=== PATIENT | male | born 1935 | race Caucasian/White ===

== ENCOUNTER 2016-10-03 12:57 | Inpatient (IN) | payer OTHER, MEDICARE ==
--- NOTE | 2016-10-03 13:06 | PDOC ---
General Adult HPI - General Chief Complaint: General Medical Stated Complaint: NOT FEELING WELL X 3 WEEKS Date Seen by Provider: 10/03/16 Time Seen by Provider: 13:05 - History of Present Illness Initial Comment: José Miguel is an 80-year-old male who presents to the emergency department with subacute symptoms. Patient reports he has not been feeling well for the last 3 weeks. He does describe nausea. Decreased oral intake. He is not taking much by mouth. Patient indicates he has not had significant stool output but feels that this is secondary to not providing much in his body. He does have abdominal pain. Right sided. No specific exacerbating or relieving factors. He did indicate that a surgeon is told him he needs to have his gallbladder out. When asked to describe what he feels like he says it feels "like a building is crumbling down". Patient denies any chest pain. No shortness of breath. 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 Have you received a tetanus shot in the past 10 years?: Unknown - Patient Home Medications Home Medications: Home Medications Multivitamin [Daily Vitamin] 1 tab PO DAILY #30 tab 11/05/12 [place]-3/Dha/Epa/Fish Oil [Fish Oil] 500 mg PO QD cap 04/15/14 Lancets 1 each MC QD #50 unit 05/12/15 Blood Sugar Diagnostic [Glucose Test Strip] 1 unit IN QD #50 strip 10/20/15 Nabumetone 1 unit PO 2-3XD #60 tab 04/18/16 Quinapril HCl 1 unit PO QD #90 tab 04/18/16 Metformin HCl 2 unit PO QAM #180 tab 07/25/16 - Patient Allergies Allergies/Adverse Reactions: Allergies Allergy/AdvReac Type Severity Reaction Status Date / Time No Known Drug Allergies Allergy NOT Verified 10/03/16 17:25 APPLICABLE Past Medical History - heen HEENT History: Hard of Hearing Cardiovascular History: Hypertension Respiratory History: Denies History Gastrointestinal History: Denies History Genitourinary History: Other (please comment) (Bladder and prostate cancer) Endocrine History: Type 2 Diabetes (oral) Musculoskeletal History: Denies History Neurological History: Denies History Blood Disorders: Denies History Psychiatric History: Denies History Male Reproductive History: Denies History Cancer History: Other (please comment) (Bladder and prostate cancer) Previous Surgical History: Yes Type / Date of Surgery: Bladder and prostate surgery. Ileal conduit Significant Family History: No pertinent family hx Past Medical History Reviewed: Reviewed - Changes Made ROS - Limitations ROS Limitations: No Limitations Constitution: REPORTS: Weakness Cardiovascular: DENIES: Chest Pain Respiratory: REPORTS: Denies Resp Symptoms Neurological: REPORTS: Denies Neuro Symptoms Gastrointestinal: REPORTS: Nausea, Vomitting Endocrine: REPORTS: Denies Symptoms Musculoskeletal: REPORTS: Other (Weakness) Genitourinary: REPORTS: Denies Symptoms Eyes: REPORTS: Denies Symptoms ENT: REPORTS: Denies Symptoms Skin: REPORTS: Denies Skin Symptoms Lympathic: REPORTS: Denies Lympathic Symptoms Psychiatric: POSITIVE: Denies Psych Symptoms General Adult Exam - General Appearance General Appearance: POSITIVE: Alert, Cooperative, No Acute Distress, No Evidence of Trauma - HEENT HEENT: POSITIVE: Other (Dry mucous membranes) - Pupils Pupil Size: 4 mm: Bilateral - Neck Neck: POSITIVE: Normal Inspection - Respiratory Respiratory: POSITIVE: No Respiratory Distress, Breath Sounds Normal - Cardiovascular Cardiovascular: POSITIVE: Other (Systolic murmur present) - Abdomen Additional Abdominal Details: Tenderness to palpation of the abdomen. Predominantly in the right upper and right lower quadrant. Mild voluntary guarding. No rebound. Decreased bowel sounds. Systolic bruit versus radiating systolic heart murmur noted in the mid abdomen - Back Back: POSITIVE: Normal Inspection - Skin Skin: POSITIVE: Normal Color, Warm, Dry - Extremities Extremity: Non-Tender: (LLE), (RLE) - Neurological / Psychological Neurological: POSITIVE: Affect Apporpriate General Adult Progress - Results Reviewed by me Xrays/CTs/US Reviewed by me: Yes Lab Results Reviewed: Yes Lab Results:: Laboratory Results 10/03/16 10/03/16 10/03/16 Range/Units 13:07 13:35 13:36 WBC 13.92 H (4.8-10.8) 10^3/uL RBC 5.24 (4.70-6.10) 10^6/uL Hgb 15.4 (14.0-18.0) g/dL Hct 45.7 (42.0-52.0) % MCV 87.2 (80-90) FL MCH 29.4 (27-31) PG MCHC 33.7 (33-37) g/dL RDW Std Deviation 42.2 (39-50) fL RDW Coeff of Derrick 13.4 (11.5-14.5) % Plt Count 411 H (140-350) 10*3/uL MPV 10.8 (7.4-12.2) FL Neutrophils % (Manual) 90 H (50-80) % Band Neutrophils % 4 (0-10) % Lymphocytes % (Manual) 2 L (10-50) % Monocytes % (Manual) 4 (0-12) % Eosinophils % (Manual) 0 (0-8) % Basophils % (Manual) 0 (0-1) % Metamyelocytes % 0 % Myelocytes % 0 % Promyelocytes % 0 % Blast Cells 0 (0-1) % WBC Morphology Comment Normal morphology (NORM) Plt Morphology Comment Normal morphology (NORM) RBC Morph Comment Normal morphology (NORM) VBG pH 7.32 (7.32-7.42) VBG pCO2 23 L (45-55) mmHg VBG HCO3 12 L (22-26) mmol/L VBG Base Excess -14 L (-2-2) MMOL/L Sodium 138 (135-145) meq/L Potassium 5.6 H (3.8-5.2) meq/L Chloride 108 (98-112) meq/L Carbon Dioxide 12 L (23-33) meq/L Anion Gap 18 (5-20) BUN 65 H (7-22) mg/dL Creatinine 1.5 (0.70-1.50) mg/dL Estimated GFR (>60 ml/min/1.73m(2)) BUN/Creatinine Ratio 43.33 H (6-20) Glucose 162 H (78-110) mg/dL Calculated Osmolality 308.0 H (267-292) mOsm/kg Calcium 9.5 (8.7-10.7) mg/dL Total Bilirubin 1.8 H (0.3-1.2) mg/dL AST 343 H (21-57) IU/L ALT 202 H (21-72) IU/L Alkaline Phosphatase 243 H (38-126) IU/L Troponin I 0.019 (< 0.040) ng/mL Total Protein 7.7 (6.1-8.0) g/dL Albumin 3.7 (3.5-4.8) g/dL Globulin 4.0 (2.50-4.10) g/dL Albumin/Globulin Ratio 0.90 L (1.3-2.0) mg/g Lipase 97 (23-300) IU/L Ur Collection Type Pee bag collection Urine Color Yellow Urine Clarity Slightly cloudy (CLEAR) Urine pH 6.5 (5.0-8.5) Ur Specific [place] 1.010 (1.005-1.030) Urine Protein Trace (NEG) mg/dl Urine Glucose (UA) Negative (NEG) mg/dL Urine Ketones 15 (NEG) Urine Occult Blood Negative (NEG) Urine Nitrate Negative (NEG) Urine Bilirubin Small (NEG) Urine Urobilinogen 1.0 (0.2) mg/dL Ur Leukocyte Esterase Negative (NEG) Urine RBC None (NONE) /hpf Urine WBC 20-30 (NONE) Ur Squamous Epith Cells None (NONE) Ur Renal Epithelial Cell Few (NONE) Urine Crystals None Urine Bacteria None (NONE) Urine Casts None Urine Mucus None (NONE) Urine Trichomonas None (NONE) Urine Yeast None (NONE) EKG Interpreted/Reviewed By Me:: Yes (normal sinus rhythm) - Patient's Progress MDM / ED Course: José Miguel is a 80-year-old male who presents to the emergency Department not feeling well. His vital signs are unremarkable and examination demonstrates dehydrated male with right-sided abdominal pain. Differential diagnosis includes but is not limited to biliary disease, hepatitis, cholecystitis, metastatic disease, bowel obstruction. Patient's laboratory studies do demonstrate an elevation in his LFTs along with bilirubin. This is slightly above his baseline. White blood cell count is elevated mildly as well. Patient 's urinalysis does not demonstrate any gross evidence of infection given that this is ileal conduit. CT scan of the abdomen and pelvis read demonstrates cholelithiasis without other evidence of acute cholecystitis. There are also scattered findings of lymph nodes of uncertain significance but potentially could represent malignancy. Patient's laboratory studies do also demonstrate dehydration. He was treated here with Zofran 2 still very nauseous. Given his inability to tolerate oral intake despite medications and laboratory findings to suggest dehydration will be admitted for further evaluation. - Consult Consult (If Yes, Name of Consulting MD & Time Called): Yes (hospitalist) Consulting MD will see pt:: POSITIVE: [facility] Admit Patient Care Time - Estimated PCT Patient Care Time (In Minutes): 40 Vital Signs - Recent Vital Signs Vital Signs: Vital Signs (Last 8 hours) Temp Pulse Pulse Resp BP BP Pulse Ox 10/03/16 18:04 98 F 98 22 119/55 91 10/03/16 18:03 98 F 98 22 119/55 91 10/03/16 17:12 98.1 F 72 140/63 93 10/03/16 12:57 97.8 F 96 18 140/67 93 - VS Reviewed Vital Signs Reviewed: Yes Discharge Clinical Impression: Dehydration Abdominal pain Qualifiers: Abdominal location: right lower quadrant Qualifier Code: (R10.31) Right lower quadrant pain Discharge Disposition: Admit to Observation Condition: Fair Date Decision to Admit to Inpatient: 10/03/16 Time Decision to Admit to Inpatient: 16:27
[2016-10-03] MEDS ORDERED: Sodium Chloride 0.9% 1,000 ML PRIMARY IV ONE (13:07)
[2016-10-03] MEDS ORDERED: NORMAL SALINE 10 ML SYRINGE FLUSH IVP PRN ×2 (13:07→18:02)
[2016-10-03] MEDS ORDERED: ONDANSETRON 4 MG/2 ML VIAL IVP ONE (13:23)
--- NOTE | 2016-10-03 13:39 | EKG ---
[address] [address] Measurements Intervals [place] Rate: 99 P: 52 NM: 130 QRS: 63 QRSD: 96 T: 43 QT: 343 QTc: 399 Interpretive Statements SINUS RHYTHM No previous ECG available for comparison Electronically Signed On 10-04-16 13:24:29 MDT by Ford Bryant [email or web address]
[2016-10-03 13:40] LABS: HEMATOCRIT 45.7 % (42.0-52.0); HEMOGLOBIN 15.4 g/dL (14.0-18.0); MEAN CORPUSCULAR HEMOGLOBIN 29.4 PG (27-31); MEAN CORPUSCULAR HGB CONC 33.7 g/dL (33-37); MEAN CORPUSCULAR VOLUME 87.2 FL (80-90); MEAN PLATELET VOLUME 10.8 FL (7.4-12.2); RED BLOOD COUNT 5.24 10^6/uL (4.70-6.10)
[2016-10-03 13:51] LABS: BUN/CREATININE RATIO 43.33 (6-20); CALCIUM 9.5 mg/dL (8.7-10.7); SERUM ALBUMIN 3.7 g/dL (3.5-4.8)
[2016-10-03 13:56] LABS: VENOUS PH 7.32 (7.32-7.42)
[2016-10-03 14:05] LABS: PLATELET MORPHOLOGY COMMENT NORMAL MORPHOLOGY (NORM); RBC MORPHOLOGY COMMENT NORMAL MORPHOLOGY (NORM); WBC MORPHOLOGY COMMENT NORMAL MORPHOLOGY (NORM)
[2016-10-03 14:06] LABS: BAND NEUTROPHILS % 4 % (0-10); BASOPHILS % (MANUAL) 0 % (0-1); EOSINOPHILS % (MANUAL) 0 % (0-8); LYMPHOCYTES % (MANUAL) 2 % (10-50); METAMYELOCYTES % 0 %; MONOCYTES % (MANUAL) 4 % (0-12); MYELOCYTES % 0 %; NEUTROPHILS % (MANUAL) 90 % (50-80); PROMYELOCYTES % 0 %
[2016-10-03 15:27] LABS: CLARITY,URINE SLIGHTLY CLOUDY (CLEAR); COLOR,URINE YELLOW; GLUCOSE, URINE (UA) NEGATIVE (NEG); NITRATE,URINE NEGATIVE (NEG); OCCULT BLOOD,URINE NEGATIVE (NEG); PH,URINE 6.5 (5.0-8.5); PROTEIN,URINE TRACE mg/dl (NEG); URINE SAMPLE TYPE PEE BAG COLLECTION
[2016-10-03 15:28] LABS: BILIRUBIN,URINE SMALL (NEG); RENAL EPITHELIAL CELLS,URINE FEW; WBC,URINE 20-30
--- NOTE | 2016-10-03 16:11 | DI ---
CT ABD W/CN AND PELVIS W/CN,10/03/2016 1:07 PM: Clinical History: Abdominal pain, nausea and vomiting. Previous Exam: December 17, 2008 Findings: Multiple helically acquired CT images are obtained through the abdomen and pelvis without contrast, a nd demonstrate diastases recti. There is a right-sided ileostomy. There is no free air nor free fluid. Peripheral vascular calcifications are seen. There are gallstones noted within the gallbladder. There is thinning of the renal cortices bilaterall y with several small simple bilateral renal cysts. There are multiple prominent retroperitoneal lymph nodes all of which are nonpathologic by size crite rocael. Peripheral vascular calcifications are seen. The liver contains multiple subcentimeter hypodensities which are too small to characterize. There is some mild lobulated contour of the liver which may represent some underlying hepatic cirrhos is. There is also heterogeneous is density throughout the liver. Impression: 1. Cholelithiasis. 2. Lobulated hepatic contour worrisome for early cirrhosis. 3. Multiple prominent retroperitoneal lymph nodes not seen on the prior exam. Prominence of retroperi toneal lymph nodes as well as a heterogeneous density throughout the liver could be secondary to meta static disease. Consider three-phase liver CT for further evaluation.
[2016-10-03] MEDS ORDERED: ONDANSETRON 4 MG/2 ML VIAL IVP PRN (18:02)
[2016-10-03] MEDS ORDERED: LIDOCAINE W/ SODIUM BICARB 0.5 ML SYR SUBD PRN (18:02)
--- NOTE | 2016-10-03 18:11 | PDOC ---
History and Physical - History of Present Illness Date and Time of Service: 10/03/2016 6:29 PM Chief Complaint: Decreased appetite, weakness, dizziness of 3-4 weeks duration History of Present Illness: This is an 80 years old male with medical history significant for history of hypertension, diabetes, history of bladder and prostate cancer status post cystoprostatectomy and urethrectomy with an ileal conduit 2010, who came into the hospital because of history of decreased appetite, weakness and at times dizziness as being going on for about 4 weeks. He said he is not eating much because he doesn't have appetite also not drinking well. Weak and dizzy at times. He fell he said but onto his bed on Sunday. Using a cane which is something new. He did report occasional abdominal pain in the right upper quadrant apparently this is being going on for a period of time pain varies in intensity no radiation. He has a history of cholelithiasis was supposed to follow-up with Dr. Oakes for potential surgery. Some mild nausea but no vomiting. Some shortness of breath but also has been going on for long period of time. He lost about 13 pounds. No abdominal pain now Past Medical History Medical History: 1. Hypertension. 2. Diabetes. 3. Hyperlipidemia. 4. History of bladder cancer status post surgery with ileal conduit formation. 5. History of prostate cancer was removed the time of bladder cancer surgery. 6. History of cholelithiasis Surgical History: 1. Status post cystoprostatectomy and urethrectomy with ileal conduit 2010. 2. Nasal surgery. 3. Inguinal hernia repair. 4. History of prior another cyst incision and drainage Pertinent Family History: Father had lung cancer Past Social History: Doesn't smoke, occasionally drinks, no drugs. Lives in [place] with his . Tobacco Use: Never Smoker Substance Use Type: None Medication / Allergies Home Medications: Home Medications Medication Instructions Recorded Confirmed Type Multivitamin [Daily Vitamin] 1 tab PO DAILY #30 tab 11/05/12 10/03/16 History [place]-3/Dha/Epa/Fish Oil [Fish Oil] 500 mg PO QD cap 04/15/14 10/03/16 History Lancets 1 each MC QD #50 unit 05/12/15 10/03/16 Clinic Blood Sugar Diagnostic [Glucose 1 unit IN QD #50 strip 10/20/15 10/03/16 Clinic Test Strip] Nabumetone 1 unit PO 2-3XD #60 tab 04/18/16 10/03/16 Clinic Quinapril HCl 1 unit PO QD #90 tab 04/18/16 10/03/16 Clinic Metformin HCl 2 unit PO QAM #180 tab 07/25/16 10/03/16 Clinic Allergies/Adverse Reactions: Allergies Allergy/AdvReac Type Severity Reaction Status Date / Time No Known Drug Allergies Allergy NOT Verified 10/04/16 06:35 APPLICABLE Review of Systems - Constitutional Constitutional: REPORTS: Weight Loss, Fatigue, Weakness - Integumentary Integumentary: REPORTS: Negative System Review - Eye Exam Eye Exam: REPORTS: Negative System Review - Ear/Nose Exam Ear/Nose Exam: REPORTS: Negative System Review - Mouth/Throat Mouth/Throat Exam: REPORTS: Negative System Review - Cardiovascular Cardiovascular: REPORTS: Negative System Review - Gastrointestinal Gastrointestinal / Abdominal: REPORTS: Nausea, Abdominal Pain, Poor Appetite - Genitourinary Genitourinary: REPORTS: Negative System Review - Musculoskeletal Musculoskeletal: REPORTS: Negative System Review - Neurological Neurologic: REPORTS: Dizziness Exam - Vitals Vital Signs: Vital Signs Temperature 98 F Temperature Source Temporal Artery Scan Pulse Rate [Pulse Oximeter] 98 Pulse Rate 98 Respiratory Rate 22 Blood Pressure [Right Arm] 119/55 Blood Pressure 140/63 Pulse Ox 91 Oxygen Flow Rate 2.5 Oxygen Delivery Method Nasal Cannula Height 5 ft 11 in Weight 230 lb - General General Appearance: POSITIVE: No Acute Distress, Obese - Head Head Exam: POSITIVE: Normal Inspection, Atraumatic - Eye Eye Exam: POSITIVE: Normal Appearance - ENT ENT Exam: POSITIVE: Normal Exam - Neck Neck Exam: POSITIVE: Normal Inspection, No Lymphadenopathy - Respiratory Respiratory Exam: POSITIVE: Clear to Auscultation - Bilaterally - Cardiovascular Cardiovascular Exam: POSITIVE: RRR, Systolic Murmur - GI/Abdominal GI/Abdominal Exam: POSITIVE: Normal Bowel Sounds, Non Distended, Soft Additional GI/Abdominal Exam Details: No significant tenderness in the right upper quadrant - Rectal Rectal Exam: POSITIVE: Deferred - External Exam: POSITIVE: Deferred - Extremities Extremities Exam: POSITIVE: Normal Inspection - Back Back Exam: POSITIVE: Normal Inspection, No CVA Tenderness - Neurological Neurological Exam: POSITIVE: Alert, Oriented x 3, CN II-XII Intact, Moves All Extremities Equally - Psychiatric Psychiatric Exam: POSITIVE: Normal Affect Results - Labs CBC and BMP: 10/04/16 05:24 10/04/16 05:24 - Imaging Status: Report Reviewed by Me (CT of the abdomen showed cholelithiasis, lobulated hepatic contour worrisome for early cirrhosis, multiple prominent retroperitoneal lymph nodes as well as heterogenous density throughout the liver this could be secondary to metastatic disease) Assessment and Plan - Patient Problems (1) Dehydration Current Visit: Yes Status: Acute Comment: This is secondary to poor intake will give him IV fluid repeat his labs in the morning. (2) Weight loss Current Visit: Yes Status: Acute Comment: With his decreased appetite and abnormal LFTs and abnormal CT all suspicious for malignancy, will do a CT of his liver tomorrow. Will order PSA. Will speak with surgery on the morning (3) Diabetes Current Visit: Yes Status: Acute Comment: We'll hold off on his metformin because he got contrast (4) Hypertension Current Visit: Yes Status: Acute Comment: Watch his blood pressure and hold off on his blood pressure medication for now (5) Increased anion gap metabolic acidosis Current Visit: Yes Status: Acute Comment: Probably secondary to starvation ketosis, will give fluid and repeat labs in am.
[2016-10-03] MEDS: Sodium Chloride 0.9% 1,000 ML PRIMARY IV SCH (19:38)
[2016-10-04] MEDS: oxyCODONE IR Tab 5 MG TAB PO PRN ×3 (02:54→16:25)
[2016-10-04] MEDS: Sodium Chloride 0.9% 1,000 ML PRIMARY IV SCH (03:12)
[2016-10-04 05:38] LABS: MEAN PLATELET VOLUME 11.1 FL (7.4-12.2)
[2016-10-04 05:42] LABS: HEMATOCRIT 44.4 % (42.0-52.0); HEMOGLOBIN 15.2 g/dL (14.0-18.0); MEAN CORPUSCULAR HGB CONC 34.2 g/dL (33-37); MEAN CORPUSCULAR VOLUME 87.6 FL (80-90); RED BLOOD COUNT 5.07 10^6/uL (4.70-6.10)
[2016-10-04 05:59] LABS: BUN/CREATININE RATIO 44.28 (6-20); SERUM ALBUMIN 3.3 g/dL (3.5-4.8)
[2016-10-04 06:19] LABS: BAND NEUTROPHILS % 3 % (0-10); BASOPHILS % (MANUAL) 0 % (0-1); EOSINOPHILS % (MANUAL) 0 % (0-8); LYMPHOCYTES % (MANUAL) 3 % (10-50); MONOCYTES % (MANUAL) 4 % (0-12); NEUTROPHILS % (MANUAL) 90 % (50-80); PLATELET MORPHOLOGY COMMENT NORMAL MORPHOLOGY (NORM); RBC MORPHOLOGY COMMENT NORMAL MORPHOLOGY (NORM); WBC MORPHOLOGY COMMENT NORMAL MORPHOLOGY (NORM)
[2016-10-04] MEDS ORDERED: D5-1/2NS 1,000 ML PRIMARY IV SCH (08:15)
[2016-10-04] MEDS ORDERED: ENOXAPARIN SODIUM 40 MG/0.4 ML SYRINGE SUBCUT SCH (09:00)
[2016-10-04] MEDS ORDERED: Ertapenem Inj 1 GM in Sodium Chloride 0.9% 100 ML IV SCH (11:00)
[2016-10-04] MEDS ORDERED: Piperacillin/Tazobactam Inj 3.375 GM in Sodium Chloride 0.9% 100 ML IV SCH (11:00)
[2016-10-04 12:01] VITALS: RESP 32; TEMP 98.1
--- NOTE | 2016-10-04 13:10 | DCSUMMARY ---
Hospitalization Summary Admit Date: 10/03/16 Discharge Date: 10/04/16 Hospital Course: Discharge diagnoses 1. Possible cholecystitis 2. Multiple prominent retroperitoneal lymph nodes, heterogenous density throughout the liver could be metastatic disease 3. History of bladder cancer and prostate cancer status post cystoprostatectomy and urethrectomy 2010 with ileal conduit 4. History of hypertension 5. Increased gap metabolic acidosis probably starvation ketosis 6. Elevated PT and PTT probable DIC secondary to inflammation or malignancy 7. Lobulated hepatic contour worrisome for early cirrhosis 8. Cholelithiasis 9. Hypoxia on oxygen Hospital course This is an 80 years old male with medical history significant for history of hypertension, diabetes, history of bladder cancer and prostate cancer status post cystoprostatectomy and urethrectomy with an ileal conduit 2010, who came into the hospital because of history of decreased appetite, weakness and at times dizziness has been going on for about 4 weeks. He said he has not been eating much because he doesn't have appetite also is not drinking well. He's feels weak and dizzy at times. He fell he said onto his bed on Sunday. He did report some occasional abdominal pain in the right upper quadrant apparently it is been going on for a period of time pain varies in intensity and there is no radiation elsewhere. Some mild nausea but no vomiting. Some shortness of breath is also being going on for a long period of time. He did report the that he lost about 13 pounds. There was no abdominal pain by the time I saw him. There was no significant tenderness in his abdomen initially. His LFTs were abnormal he had a CT of the abdomen which showed lobulated hepatic contour worrisome for early cirrhosis, cholelithiasis, multiple prominent retroperitoneal lymph nodes as well as heterogenous density throughout the liver could be secondary to metastatic disease. Patient was admitted to the hospital the patient presentation was not entirely clear but we thought that maybe he has an underlying cancer and that would explain his weight loss and decreased appetite and abnormal LFTs and also the hypodensity present on CT of the abdomen in additional to the prominent lymph nodes. We did take a blood culture and they are still negative. The next day he is having more prominent abdominal pain more tenderness, we did a CT of the liver tripe phase and per my discussion with the radiologist there still hypodensity present they don't show enhancement though, we did put him on antibiotics with Zosyn as the other potential reason is a cholecystitis although doesn't appear on the CT. I did speak with the surgeon who saw the patient and recommended transfer because of the abnormal PT and PTT and potentially the need for ERCP. The case was discussed with Dr. Abebe at [facility] patient was accepted for transfer. Laboratory Results 10/03/16 10/03/16 10/03/16 Range/Units 13:07 13:35 13:36 WBC 13.92 H (4.8-10.8) 10^3/uL RBC 5.24 (4.70-6.10) 10^6/uL Hgb 15.4 (14.0-18.0) g/dL Hct 45.7 (42.0-52.0) % MCV 87.2 (80-90) FL MCH 29.4 (27-31) PG MCHC 33.7 (33-37) g/dL RDW Std Deviation 42.2 (39-50) fL RDW Coeff of Derrick 13.4 (11.5-14.5) % Plt Count 411 H (140-350) 10*3/uL MPV 10.8 (7.4-12.2) FL Neutrophils % (Manual) 90 H (50-80) % Band Neutrophils % 4 (0-10) % Lymphocytes % (Manual) 2 L (10-50) % Monocytes % (Manual) 4 (0-12) % Eosinophils % (Manual) 0 (0-8) % Basophils % (Manual) 0 (0-1) % Metamyelocytes % 0 % Myelocytes % 0 % Promyelocytes % 0 % Blast Cells 0 (0-1) % WBC Morphology Comment Normal morphology (NORM) Plt Morphology Comment Normal morphology (NORM) RBC Morph Comment Normal morphology (NORM) PT (9.7-11.4) secs INR (0.00-5.90) N/A APTT (22.6-31.3) SECS VBG pH 7.32 (7.32-7.42) VBG pCO2 23 L (45-55) mmHg VBG HCO3 12 L (22-26) mmol/L VBG Base Excess -14 L (-2-2) MMOL/L Sodium 138 (135-145) meq/L Potassium 5.6 H (3.8-5.2) meq/L Chloride 108 (98-112) meq/L Carbon Dioxide 12 L (23-33) meq/L Anion Gap 18 (5-20) BUN 65 H (7-22) mg/dL Creatinine 1.5 (0.70-1.50) mg/dL Estimated GFR (>60 ml/min/1.73m(2)) BUN/Creatinine Ratio 43.33 H (6-20) Glucose 162 H (78-110) mg/dL Calculated Osmolality 308.0 H (267-292) mOsm/kg Lactic Acid (0.70-2.10) MMOL/L Calcium 9.5 (8.7-10.7) mg/dL Total Bilirubin 1.8 H (0.3-1.2) mg/dL AST 343 H (21-57) IU/L ALT 202 H (21-72) IU/L Alkaline Phosphatase 243 H (38-126) IU/L Troponin I 0.019 (< 0.040) ng/mL Total Protein 7.7 (6.1-8.0) g/dL Albumin 3.7 (3.5-4.8) g/dL Globulin 4.0 (2.50-4.10) g/dL Albumin/Globulin Ratio 0.90 L (1.3-2.0) mg/g Lipase 97 (23-300) IU/L PSA Screen (0.006-4.00) ng/ml Ur Collection Type Pee bag collection Urine Color Yellow Urine Clarity Slightly cloudy (CLEAR) Urine pH 6.5 (5.0-8.5) Ur Specific [place] 1.010 (1.005-1.030) Urine Protein Trace (NEG) mg/dl Urine Glucose (UA) Negative (NEG) mg/dL Urine Ketones 15 (NEG) Urine Occult Blood Negative (NEG) Urine Nitrate Negative (NEG) Urine Bilirubin Small (NEG) Urine Urobilinogen 1.0 (0.2) mg/dL Ur Leukocyte Esterase Negative (NEG) Urine RBC None (NONE) /hpf Urine WBC 20-30 (NONE) Ur Squamous Epith Cells None (NONE) Ur Renal Epithelial Cell Few (NONE) Urine Crystals None Urine Bacteria None (NONE) Urine Casts None Urine Mucus None (NONE) Urine Trichomonas None (NONE) Urine Yeast None (NONE) 10/04/16 10/04/16 Range/Units 05:24 09:51 WBC 13.00 H (4.8-10.8) 10^3/uL RBC 5.07 (4.70-6.10) 10^6/uL Hgb 15.2 (14.0-18.0) g/dL Hct 44.4 (42.0-52.0) % MCV 87.6 (80-90) FL MCH 30.0 (27-31) PG MCHC 34.2 (33-37) g/dL RDW Std Deviation 43.0 (39-50) fL RDW Coeff of Derrick 13.7 (11.5-14.5) % Plt Count 359 H (140-350) 10*3/uL MPV 11.1 (7.4-12.2) FL Neutrophils % (Manual) 90 H (50-80) % Band Neutrophils % 3 (0-10) % Lymphocytes % (Manual) 3 L (10-50) % Monocytes % (Manual) 4 (0-12) % Eosinophils % (Manual) 0 (0-8) % Basophils % (Manual) 0 (0-1) % Metamyelocytes % Not Reportable % Myelocytes % Not Reportable % Promyelocytes % Not Reportable % Blast Cells Not Reportable (0-1) % WBC Morphology Comment Normal morphology (NORM) Plt Morphology Comment Normal morphology (NORM) RBC Morph Comment Normal morphology (NORM) PT 41.6 H (9.7-11.4) secs INR 3.93 (0.00-5.90) N/A APTT 40.1 H (22.6-31.3) SECS VBG pH (7.32-7.42) VBG pCO2 (45-55) mmHg VBG HCO3 (22-26) mmol/L VBG Base Excess (-2-2) MMOL/L Sodium 139 (135-145) meq/L Potassium 5.7 H (3.8-5.2) meq/L Chloride 114 H (98-112) meq/L Carbon Dioxide 8 L (23-33) meq/L Anion Gap 17 (5-20) BUN 62 H (7-22) mg/dL Creatinine 1.4 (0.70-1.50) mg/dL Estimated GFR (>60 ml/min/1.73m(2)) BUN/Creatinine Ratio 44.28 H (6-20) Glucose 120 H (78-110) mg/dL Calculated Osmolality 306.0 H (267-292) mOsm/kg Lactic Acid 2.6 H (0.70-2.10) MMOL/L Calcium 9.0 (8.7-10.7) mg/dL Total Bilirubin 2.0 H (0.3-1.2) mg/dL AST 335 H (21-57) IU/L ALT 183 H (21-72) IU/L Alkaline Phosphatase 218 H (38-126) IU/L Troponin I (< 0.040) ng/mL Total Protein 7.3 (6.1-8.0) g/dL Albumin 3.3 L (3.5-4.8) g/dL Globulin 4.0 (2.50-4.10) g/dL Albumin/Globulin Ratio 0.80 L (1.3-2.0) mg/g Lipase (23-300) IU/L PSA Screen < 0.064 (0.006-4.00) ng/ml Ur Collection Type Urine Color Urine Clarity (CLEAR) Urine pH (5.0-8.5) Ur Specific [place] (1.005-1.030) Urine Protein (NEG) mg/dl Urine Glucose (UA) (NEG) mg/dL Urine Ketones (NEG) Urine Occult Blood (NEG) Urine Nitrate (NEG) Urine Bilirubin (NEG) Urine Urobilinogen (0.2) mg/dL Ur Leukocyte Esterase (NEG) Urine RBC (NONE) /hpf Urine WBC (NONE) Ur Squamous Epith Cells (NONE) Ur Renal Epithelial Cell (NONE) Urine Crystals Urine Bacteria (NONE) Urine Casts Urine Mucus (NONE) Urine Trichomonas (NONE) Urine Yeast (NONE) Follow-up per the Medical Center post discharge. Exam - Vitals Vital Signs: Vital Signs Temperature 98.1 F Temperature Source Temporal Artery Scan Pulse Rate [Pulse Oximeter] 98 Pulse Rate 102 Respiratory Rate 32 Blood Pressure [Right Arm] 121/55 Blood Pressure 140/63 Pulse Ox 92 Oxygen Flow Rate 4.5 Oxygen Delivery Method Nasal Cannula Height 5 ft 11 in Weight 246 lb 9.6 oz - General General Appearance: POSITIVE: Cooperative, Obese - Head Head Exam: POSITIVE: Normal Inspection, Atraumatic - Eye Eye Exam: POSITIVE: Normal Appearance - ENT ENT Exam: POSITIVE: Normal Exam - Neck Neck Exam: POSITIVE: Normal Inspection - Respiratory Respiratory Exam: POSITIVE: Clear to Auscultation - Bilaterally - Cardiovascular Cardiovascular Exam: POSITIVE: Systolic Murmur - GI/Abdominal GI/Abdominal Exam: POSITIVE: Normal Bowel Sounds, Non Distended, Soft Additional GI/Abdominal Exam Details: Urine bag on the left side present, right upper quadrant tenderness more prominent than yesterday. - Rectal Rectal Exam: POSITIVE: Deferred - External Exam: POSITIVE: Deferred - Extremities Extremities Exam: POSITIVE: Normal Inspection - Back Back Exam: POSITIVE: Normal Inspection Patient Problems - Patient Problem List (1) Dehydration Current Visit: Yes Status: Acute (2) Weight loss Current Visit: Yes Status: Acute (3) Diabetes Current Visit: Yes Status: Acute (4) Hypertension Current Visit: Yes Status: Acute (5) Increased anion gap metabolic acidosis Current Visit: Yes Status: Acute
--- NOTE | 2016-10-04 13:50 | DI ---
CT ABDOMEN W/WO CONTRAST,10/04/2016 9:00 AM: Clinical History: Weight loss and abnormal liver function tests. Previous Exam: October 03, 2016 Findings: Multiple helically acquired CT images are obtained through the abdomen following a [address], and demonstrate diffuse heterogeneity of the liver with variable enhancement most prominent on the de layed images with some lobulated hepatic contour. There are stable stones within the gallbladder. The pancreas is unremarkable. Adrenals and kidneys ar e normal and stable. There are right-sided simple renal cysts unchanged from the prior exam. Multiple enlarged retroperitoneal lymph nodes are again noted. Skeletal structures are unremarkable. There is a small left-sided pleural effusion and some subsegmental atelectasis. Coronary artery calci fications are seen. Impression: 1. Diffuse heterogeneity of the liver with heterogeneous enhancement most consistent with metastatic disease of the liver. 2. Enlarged retroperitoneal lymph nodes most consistent with metastatic involvement of the retroperit rodriguez nodes. 3. Cholelithiasis.
--- NOTE | 2016-10-04 15:29 | CONSULT ---
Consult Note - Consult Consult Date: 10/04/16 Reason for Consult: PreOp Consulation : General Surgery Requesting Physician: Dr. Yao Primary Care Provider: NONE NONE - History of Present Illness History of Present Illness: This is an 80-year-old gentleman who has a known history of cholelithiasis the comes in with approximate 4 week history of a being weak. He has loss of appetite. Nausea. An abdominal pain. Laboratory values are as follows: 10/03/16 10/03/16 10/03/16 13:07 13:35 13:36 WBC 13.92 H Hgb 15.4 Hct 45.7 PT INR VBG pH 7.32 VBG pCO2 23 L VBG HCO3 12 L VBG Base Excess -14 L Sodium 138 Potassium 5.6 H Chloride 108 Carbon Dioxide 12 L Anion Gap 18 BUN 65 H Creatinine 1.5 BUN/Creatinine Ratio 43.33 H Glucose 162 H Calculated Osmolality 308.0 H Total Bilirubin 1.8 H AST 343 H ALT 202 H Alkaline Phosphatase 243 H Lipase 97 Urine RBC None Urine WBC 20-30 Ur Squamous Epith Cells None Ur Renal Epithelial Cell Few Urine Crystals None Urine Bacteria None Urine Casts None 10/04/16 05:24 WBC Hgb Hct PT 41.6 H INR 3.93 VBG pH VBG pCO2 VBG HCO3 VBG Base Excess Sodium Potassium Chloride Carbon Dioxide Anion Gap BUN Creatinine BUN/Creatinine Ratio Glucose Calculated Osmolality Total Bilirubin AST ALT Alkaline Phosphatase Lipase Urine RBC Urine WBC Ur Squamous Epith Cells Ur Renal Epithelial Cell Urine Crystals Urine Bacteria Urine Casts Patient is CT scan that shows cholelithiasis. Also shows that he has liver masses consistent with metastatic disease Review of Systems - Review of Systems -: Abdominal pain Past Medical History Medical History: 1. Hypertension. 2. Diabetes. 3. Hyperlipidemia. 4. History of bladder cancer status post surgery with ileal conduit formation. 5. History of prostate cancer was removed the time of bladder cancer surgery. 6. History of cholelithiasis Surgical History: 1. Status post cystoprostatectomy and urethrectomy with ileal conduit 2010. 2. Nasal surgery. 3. Inguinal hernia repair. 4. History of prior another cyst incision and drainage Pertinent Family History: Father had lung cancer Past Social History: Doesn't smoke, occasionally drinks, no drugs. Lives in [place] with his . Tobacco Use: Never Smoker Substance Use Type: None Medication / Allergies Home Medications: Home Medications Medication Instructions Recorded Confirmed Type Multivitamin [Daily Vitamin] 1 tab PO DAILY #30 tab 11/05/12 10/03/16 History [place]-3/Dha/Epa/Fish Oil [Fish Oil] 500 mg PO QD cap 04/15/14 10/03/16 History Lancets 1 each MC QD #50 unit 05/12/15 10/03/16 Clinic Blood Sugar Diagnostic [Glucose 1 unit IN QD #50 strip 10/20/15 10/03/16 Clinic Test Strip] Nabumetone 1 unit PO 2-3XD #60 tab 04/18/16 10/03/16 Clinic Quinapril HCl 1 unit PO QD #90 tab 04/18/16 10/03/16 Clinic Metformin HCl 2 unit PO QAM #180 tab 07/25/16 10/03/16 Clinic Allergies/Adverse Reactions: Allergies Allergy/AdvReac Type Severity Reaction Status Date / Time No Known Drug Allergies Allergy NOT Verified 10/04/16 06:35 APPLICABLE Exam - Vitals Vital Signs: Vital Signs Temperature 98.1 F Temperature Source Temporal Artery Scan Pulse Rate [Pulse Oximeter] 98 Pulse Rate 102 Respiratory Rate 32 Blood Pressure [Right Arm] 121/55 Blood Pressure 140/63 Pulse Ox 92 Oxygen Flow Rate 4.5 Oxygen Delivery Method Nasal Cannula Height 5 ft 11 in Weight 111.856 kg - General General Appearance: POSITIVE: Mild Distress - Eye Eye Exam: POSITIVE: PERRL, EOMI - GI/Abdominal GI/Abdominal Exam: POSITIVE: Distended, Guarding, Positive for RUQ Pain, No Hepatomegaly, No Splenomegaly Results - Labs CBC and BMP: 10/04/16 05:24 10/04/16 05:24 Labs - Last 24 Hours: Laboratory Results 10/04/16 10/04/16 Range/Units 05:24 09:51 WBC 13.00 H (4.8-10.8) 10^3/uL RBC 5.07 (4.70-6.10) 10^6/uL Hgb 15.2 (14.0-18.0) g/dL Hct 44.4 (42.0-52.0) % MCV 87.6 (80-90) FL MCH 30.0 (27-31) PG MCHC 34.2 (33-37) g/dL RDW Std Deviation 43.0 (39-50) fL RDW Coeff of Derrick 13.7 (11.5-14.5) % Plt Count 359 H (140-350) 10*3/uL MPV 11.1 (7.4-12.2) FL Neutrophils % (Manual) 90 H (50-80) % Band Neutrophils % 3 (0-10) % Lymphocytes % (Manual) 3 L (10-50) % Monocytes % (Manual) 4 (0-12) % Eosinophils % (Manual) 0 (0-8) % Basophils % (Manual) 0 (0-1) % Metamyelocytes % Not Reportable Myelocytes % Not Reportable Promyelocytes % Not Reportable Blast Cells Not Reportable WBC Morphology Comment Normal morphology (NORM) Plt Morphology Comment Normal morphology (NORM) RBC Morph Comment Normal morphology (NORM) PT 41.6 H (9.7-11.4) secs INR 3.93 (0.00-5.90) N/A APTT 40.1 H (22.6-31.3) SECS Sodium 139 (135-145) meq/L Potassium 5.7 H (3.8-5.2) meq/L Chloride 114 H (98-112) meq/L Carbon Dioxide 8 L (23-33) meq/L Anion Gap 17 (5-20) BUN 62 H (7-22) mg/dL Creatinine 1.4 (0.70-1.50) mg/dL Estimated GFR (>60 ml/min/1.73m(2)) BUN/Creatinine Ratio 44.28 H (6-20) Glucose 120 H (78-110) mg/dL Calculated Osmolality 306.0 H (267-292) mOsm/kg Lactic Acid 2.6 H (0.70-2.10) MMOL/L Calcium 9.0 (8.7-10.7) mg/dL Total Bilirubin 2.0 H (0.3-1.2) mg/dL AST 335 H (21-57) IU/L ALT 183 H (21-72) IU/L Alkaline Phosphatase 218 H (38-126) IU/L Total Protein 7.3 (6.1-8.0) g/dL Albumin 3.3 L (3.5-4.8) g/dL Globulin 4.0 (2.50-4.10) g/dL Albumin/Globulin Ratio 0.80 L (1.3-2.0) mg/g PSA Screen < 0.064 (0.006-4.00) ng/ml Assessment and Plan - Patient Problems (1) Ascending cholangitis Current Visit: Yes Status: Acute (2) Liver masses Current Visit: Yes Status: Acute - Assessment / Plan Additional Assessment/Plan Details: I believe the patient has 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 He also has a history of prostate malignancy. Patient's INR is elevated. Patient also may have ascending cholangitis. I do believe that he needs be transferred to a larger facility that can take care of him. We do not have the capabilities at this facility take care of the patient with all these medical problems.
== END 2016-10-04 16:33 | disposition short-term general hospital (02) | DRG 445 ==
LOC: ER 12:57 → MED/SURG 16:29
PROVIDERS: ADMIT Internal Medicine; ATTEND Internal Medicine
DX: E86.0 Dehydration (principal); R10.31 Right lower quadrant pain; R11.0 Nausea; K80.10 Calculus of gallbladder with chronic cholecystitis without obstruction; E87.2 Acidosis; K76.9 Liver disease, unspecified; I10 Essential (primary) hypertension; R09.02 Hypoxemia; R63.4 Abnormal weight loss; E11.9 Type 2 diabetes mellitus without complications; R16.0 Hepatomegaly, not elsewhere classified
CPT/HCPCS: 36415; 74170; 74177; 80053; 81001; 82803; 83605; 83690; 84484; 85007; 85610; 85730; 87040; 87077; 87088; 87186; 93005; 93010; 94761; 96374; 99284; G0103; J2405; J2543; J7030; J7050